=== PATIENT | male | born 1995 | race Caucasian/White ===

== ENCOUNTER 2024-04-18 12:18 | Emergency (ER) | payer OTHER ==
[~2024-04-18] VITALS: Ht 182.8 cm; Wt 95.3 kg
[2024-04-18] MEDS ORDERED: LIDOCAINE HCL/EPINEPHRINE BIT 1.8 ML CARTRIDGE IJ ONE (15:25)
[2024-04-18] MEDS ORDERED: EPINEPHrine/Lidocaine Hydroc 20 ML VIAL SC ONE (15:30)
[2024-04-18] MEDS ORDERED: Bacitracin Zinc 14 GM TUBE T ONE (16:10)
[2024-04-18] MEDS ORDERED: CEPHALEXIN500 M1 PO (16:19)
== END 2024-04-18 16:24 | disposition home or self-care (01) ==
LOC: ED 12:18
DX: S81.011A Laceration without foreign body, right knee, initial encounter (principal); W01.198A Fall on same level from slipping, tripping and stumbling with subsequent striking against other object, initial encounter; Y93.89 Activity, other specified; Y92.89 Other specified places as the place of occurrence of the external cause; Y99.8 Other external cause status